=== PATIENT | female | born 1960 | race Caucasian/White ===

== ENCOUNTER 2018-12-27 05:22 | Emergency (ER) | payer SELFPAY ==
[~2018-12-27] VITALS: Ht 154.9 cm; Wt 81.6 kg
[~2018-12-27 05:22] MED LIST: BLACK COHOSH; CYMBALTA; FLAX OIL; HYDR12.570; LISI20TA; LVT.088T
--- OUTSIDE RECORDS SUMMARY | 2018-12-27 05:30 | XMS REPORT ---
Author Author FREDDIE MARTIN Organization [facility] Address [address] [place] [address] Care Team Providers Care Hand Molder Name Role Phone FREDDIE MARTIN Unavailable PROBLEMS Type Condition ICD9-CM Code QHL43-GA Code Onset Dates Condition Status SNOMED Code Problem Anxiety F41.9 Active 07622098 Problem Acquired hypothyroidism E03.9 Active 512069432 Problem Chronic pain syndrome G89.4 Active 036186572 Problem Tobacco use Z72.0 Active 222055745 Problem Essential hypertension I10 Active 05029210 Problem Grief reaction F43.20 Active 744543555 ALLERGIES No Information ENCOUNTERS Encounter Location Date Diagnosis [facility] [address] [address] Jan, [place] [address] [address] October, Anxiety F41.9 and Acute right-sided low back pain without sciatica M54.5 [place] [address] [place] [id number] [place] [address] Sep, [place] [address] [address] Jul, Acute right-sided low back pain without sciatica M54.5 [place] [address] [address] May, Essential hypertension I10 ; Tobacco use Z72.0 ; Acquired hypothyroidism E03.9 ; Chronic pain syndrome G89.4 and Grief reaction F43.20 [place] [address] [place] [id number] [place] [address] Jan, Dermatofibroma D23.9 [place] [address] [place] [address] Jan, Actinic keratosis L57.0 [facility] [address] [place] [id number] [address] Jun, [facility] [address] [address] Sep, [facility] [address] [address] Sep, [facility] [address] [place] [id number] [address] Aug, [facility] [address] [place] [id number] [address] Aug, IMMUNIZATIONS No Known Immunizations SOCIAL HISTORY Never Assessed REASON FOR VISIT Refill Request PLAN OF CARE VITAL SIGNS MEDICATIONS Medication Instructions Dosage Frequency Start Date End Date Duration Status Levothyroxine Sodium 112 MCG Orally Once a day 1 tablet on an empty stomach in the morning 24h Active RESULTS No Results PROCEDURES No Known procedures INSTRUCTIONS MEDICATIONS ADMINISTERED No Known Medications MEDICAL (GENERAL) HISTORY Type Description Date Medical History hypertension Medical History hypothyroidism Medical History anxiety Medical History chronic back, knee, and hip pain Medical History carpal tunnel Surgical History thyroidectomy Surgical History carpal tunnel release aiden Surgical History cervical biopsy x3 Hospitalization History pnuemonia
--- OUTSIDE RECORDS SUMMARY | 2018-12-27 05:30 | XMS REPORT ---
Author Author FREDDIE MARTIN Organization [facility] Address [address] [place] [address] Care Team Providers Care Ticket Sorter Name Role Phone FREDDIE MARTIN Unavailable PROBLEMS Type Condition ICD9-CM Code HQE44-DA Code Onset Dates Condition Status SNOMED Code Problem Anxiety F41.9 Active 44626819 Problem Acquired hypothyroidism E03.9 Active 399352757 Problem Chronic pain syndrome G89.4 Active 057594815 Problem Tobacco use Z72.0 Active 639739673 Problem Essential hypertension I10 Active 42410867 Problem Grief reaction F43.20 Active 802406034 ALLERGIES No Information ENCOUNTERS Encounter Location Date Diagnosis [place] [address] [address] October, Anxiety F41.9 and Acute right-sided low back pain without sciatica M54.5 [place] [address] [address] Sep, [place] [address] [address] Jul, Acute right-sided low back pain without sciatica M54.5 [place] [address] [address] May, Essential hypertension I10 ; Tobacco use Z72.0 ; Acquired hypothyroidism E03.9 ; Chronic pain syndrome G89.4 and Grief reaction F43.20 [place] [address] [address] Jan, Dermatofibroma D23.9 [place] [address] [place] [id number] [place] [address] Jan, Actinic keratosis L57.0 [place] [address] [facility] [id number] [address] Jun, [facility] [address] [facility] [id number] [address] Sep, [facility] [address] [facility] [id number], [place] [address] Sep, [facility] [address] [facility] [id number], [place] [address] Aug, [facility] [address] [facility] [id number], [place] [address] Aug, IMMUNIZATIONS No Known Immunizations SOCIAL HISTORY Never Assessed REASON FOR VISIT Refill request PLAN OF CARE VITAL SIGNS MEDICATIONS Medication [...]
--- OUTSIDE RECORDS SUMMARY | 2018-12-27 05:30 | XMS REPORT ---
Author Author FREDDIE MARTIN Organization [facility] Address [address] [place] [address] Care Team Providers Care Certified Court/Medical Interpreter Name Role Phone FREDDIE MARTIN Unavailable PROBLEMS Type Condition ICD9-CM Code TCD12-YW Code Onset Dates Condition Status SNOMED Code Problem Anxiety F41.9 Active 84924877 Problem Acquired hypothyroidism E03.9 Active 820595541 Problem Chronic pain syndrome G89.4 Active 196450058 Problem Tobacco use Z72.0 Active 494293581 Problem Essential hypertension I10 Active 43650606 Problem Grief reaction F43.20 Active 859075493 ALLERGIES No Information ENCOUNTERS Encounter Location Date Diagnosis [facility] [address] [address] Apr, [facility] [address] [place] [id number] [place] [address] Apr, [facility] [address] [address] Jan, [facility] [address] [place] [id number] [place] [address] October, Anxiety F41.9 and Acute right-sided low back pain without sciatica M54.5 [facility] [address] [place] [id number] [place] [address] Sep, [facility] [address] [address] 08 Jul, 2017 Acute right-sided low back pain without sciatica M54.5 [facility] [address] [address] 13 May, 2017 Essential hypertension I10 ; Tobacco use Z72.0 ; Acquired hypothyroidism E03.9 ; Chronic pain syndrome G89.4 and Grief reaction F43.20 [place] [address], [place] [address] Jan, Dermatofibroma D23.9 [place] [address], [place] [address] Jan, Actinic keratosis L57.0 [place] [address] [place] [id number] [place] [address] Jun, [place] [address] [place] [id number] [place] [address] Sep, [place] [address] [place] [id number] [place], [place] [address] Sep, [place] [address] [place] [id number] [place] [address] Aug, [place] [address] [place] [id number] [place] [address] Aug, IMMUNIZATIONS No Known Immunizations SOCIAL HISTORY Never Assessed REASON FOR VISIT thigh pain bilaterally for the past month. denies any injury. pt doesnt have her copay. chayito, explained to pt we will get her an appt with pcp. pt verbali zed understanding, advised pt to alternate tylenol et motrin as needed for the p ain. may also try heat et / or ice for muscle pain PLAN OF CARE VITAL SIGNS Height 61 in 2018-04-30 Weight 194.0 lbs 2018-04-30 Temperature 98.2 degrees Fahrenheit 2018-04-30 Heart Rate 74 bpm 2018-04-30 Respiratory Rate 20 2018-04-30 BMI 36.65 kg/m2 2018-04-30 Blood pressure systolic 140 mmHg 2018-04-30 Blood pressure diastolic 82 mmHg 2018-04-30 MEDICATIONS Medication Instructions Dosage Frequency Start Date End Date Duration Status Lisinopril 20 MG Orally Once a day 1 tablet 24h Not-Taking Hydrochlorothiazide 12.5 MG Orally Once a day 1 capsule in the morning 24h Not-Taking Aleve Active Levothyroxine Sodium 112 MCG Orally Once a day 1 tablet on an empty stomach in the morning 24h Active Cymbalta 30 MG Orally Once a day x 1 week then 2 tabs daily 1 capsule October, 30 day(s) Not-Taking Valium 2 MG Orally twice a day 1 tablet as needed 12h October, 28 days Not-Taking RESULTS No Results PROCEDURES No Known procedures [...]
--- OUTSIDE RECORDS SUMMARY | 2018-12-27 05:30 | XMS REPORT ---
Author Author FREDDIE MARTIN Organization [facility] Address [address] [place] [address] Care Team Providers Care Pleater Name Role Phone FREDDIE MARTIN Unavailable PROBLEMS Type Condition ICD9-CM Code SJM71-YA Code Onset Dates Condition Status SNOMED Code Problem Anxiety F41.9 Active 72327457 Problem Acquired hypothyroidism E03.9 Active 116903449 Problem Chronic pain syndrome G89.4 Active 663405434 Problem Tobacco use Z72.0 Active 318219433 Problem Essential hypertension I10 Active 37371029 Problem Grief reaction F43.20 Active 419596241 ALLERGIES Substance Reaction Event Type Date Status Statins Depletion Unknown Drug Allergy Jul, Active Penicillin V Potassium Unknown Drug Allergy Jul, Active Bactrim DS Unknown Drug Allergy Jul, Active ENCOUNTERS Encounter Location Date Diagnosis [place] [address] [place] [id number] [place] [address] Jan, [place] [address] [place] [id number] [place] [address] October, Anxiety F41.9 and Acute right-sided low back pain without sciatica M54.5 [place] [address] [place] [id number] [place] [address] Sep, [facility] [address] [place] [id number] [place] [address] Jul, Acute right-sided low back pain without sciatica M54.5 [place] [address] [place] [id number] [place] [address] May, Essential hypertension I10 ; Tobacco use Z72.0 ; Acquired hypothyroidism E03.9 ; Chronic pain syndrome G89.4 and Grief reaction F43.20 [place] [address] [place], [place] [address] Jan, Dermatofibroma D23.9 [facility] [address], [place] [address] Jan, Actinic keratosis L57.0 [facility] [address], [place] [address] Jun, [facility] [address], [place] [address] Sep, [facility] [address], [place] [address] Sep, [facility] [address], [place] [address] Aug, [facility] [address], [place] [address] Aug, IMMUNIZATIONS Vaccine Route Administration Date Status DEPO MEDROL 40 MG/ML IM Intramuscular Aug 06, 2017 Administered SOCIAL HISTORY Never Assessed REASON FOR VISIT Pain (acute) / middle back pain x few days -- mendel ibrahim PLAN OF CARE Activity Details Follow Up 3 Months with Jessica crowder back pain Reason: VITAL SIGNS Height 61 in 2017-08-06 Weight 174.0 lbs 2017-08-06 Temperature 97.8 degrees Fahrenheit 2017-08-06 BMI 32.87 kg/m2 2017-08-06 Blood pressure systolic 138 mmHg 2017-08-06 Blood pressure diastolic 86 mmHg 2017-08-06 MEDICATIONS Medication Instructions Dosage Frequency Start Date End Date Duration Status Hydrocodone-Acetaminophen 10-325 MG Orally every 6 hrs 1 tablet as needed 6h Jul, Jul, 10 days Active Aleve Active BusPIRone HCl 10 mg Orally Twice a day 1 tablet 12h May, Not-Taking Lisinopril 20 MG Orally Once a day 1 tablet 24h Not-Taking Hydrochlorothiazide 12.5 MG Orally Once a day 1 capsule in the morning 24h Not-Taking Levothyroxine Sodium 112 MCG Orally Once a day 1 tablet on an empty stomach in the morning 24h Active RESULTS No Results PROCEDURES Procedure Date Ordered Result Body Site DEPO MEDROL 40 MG/ML Aug 06, 2017 THER/PROPH/DIAG INJ, SC/IM Aug 06, 2017 INSTRUCTIONS MEDICATIONS ADMINISTERED No Known Medications MEDICAL (GENERAL) HISTORY Type Description Date Medical History hypertension Medical History hypothyroidism Medical History anxiety Medical History chronic back, knee, and hip pain Medical History carpal tunnel Surgical History thyroidectomy Surgical History carpal tunnel release aiden Surgical History cervical biopsy x3 Hospitalization History pnuemonia
--- OUTSIDE RECORDS SUMMARY | 2018-12-27 05:30 | XMS REPORT ---
Author Author FREDDIE MARTIN Organization [facility] Address [address] [place] [address] Care Team Providers Care Mattress Renovator Name Role Phone FREDDIE MARTIN Unavailable PROBLEMS Type Condition ICD9-CM Code NPD45-MS Code Onset Dates Condition Status SNOMED Code Problem Anxiety F41.9 Active 29769153 Problem Acquired hypothyroidism E03.9 Active 894932751 Problem Chronic pain syndrome G89.4 Active 042528594 Problem Tobacco use Z72.0 Active 152903249 Problem Essential hypertension I10 Active 18542908 Problem Grief reaction F43.20 Active 038407461 ALLERGIES Substance Reaction Event Type Date Status Statins Depletion Unknown Drug Allergy May, Active Penicillin V Potassium Unknown Drug Allergy May, Active Bactrim DS Unknown Drug Allergy May, Active ENCOUNTERS Encounter Location Date Diagnosis [place] [address] [place] [id number] [place] [address] October, Anxiety F41.9 and Acute right-sided low back pain without sciatica M54.5 [place] [address] [place] [address] Sep, [place] [address] [place] [id number] [place] [address] Jul, Acute right-sided low back pain without sciatica M54.5 [place] [address] [place] [id number] [place] [address] May, Essential hypertension I10 ; Tobacco use Z72.0 ; Acquired hypothyroidism E03.9 ; Chronic pain syndrome G89.4 and Grief reaction F43.20 [place] [address] [place] [id number] [place] [address] Jan, Dermatofibroma D23.9 [place] [address] [place] [id number], [place] [address] Jan, Actinic keratosis L57.0 [facility] [address] [place] [id number], [place] [address] Jun, [facility] [address] [facility] [id number] [address] Sep, [place] [address], [place] [address] Sep, [facility] [address] [facility] [id number] [address] Aug, [place] [address], [place] [address] Aug, IMMUNIZATIONS No Known Immunizations SOCIAL HISTORY Never Assessed REASON FOR VISIT Establish Care Bruno KIRKA , pt would like to discuss refills for Valium and h ydrcodone PLAN OF CARE Activity Details Follow Up 3 Months with Jessica crowder HTN/chronic pain medications Reason: VITAL SIGNS Height 61 in 2017-06-10 Weight 168.9 lbs 2017-06-10 Temperature 98.1 degrees Fahrenheit 2017-06-10 Heart Rate 96 bpm 2017-06-10 Respiratory Rate 18 2017-06-10 BMI 31.91 kg/m2 2017-06-10 Blood pressure systolic 168 mmHg 2017-06-10 Blood pressure diastolic 90 mmHg 2017-06-10 MEDICATIONS Medication Instructions Dosage Frequency Start Date End Date Duration Status Hydrocodone-Acetaminophen 10-325 MG Orally every 6 hrs 1 tablet as needed 6h May, Active Hydrochlorothiazide 12.5 MG Orally Once a day 1 capsule in the morning 24h Not-Taking Aleve Active Lisinopril 20 MG Orally Once a day 1 tablet 24h Not-Taking BusPIRone HCl 10 mg Orally Twice a day 1 tablet 12h May, Active Levothyroxine Sodium 112 MCG Orally Once [...]
--- OUTSIDE RECORDS SUMMARY | 2018-12-27 05:30 | XMS REPORT ---
Author Author FREDDIE MARTIN Organization [facility] Address [address] [place] [address] Care Team Providers Care Apple Checker Name Role Phone FREDDIE MARTIN Unavailable PROBLEMS Type Condition ICD9-CM Code IHR75-PX Code Onset Dates Condition Status SNOMED Code Problem Anxiety F41.9 Active 45106414 Problem Acquired hypothyroidism E03.9 Active 259552306 Problem Chronic pain syndrome G89.4 Active 528054652 Problem Tobacco use Z72.0 Active 345398219 Problem Essential hypertension I10 Active 67789929 Problem Grief reaction F43.20 Active 088749421 ALLERGIES Substance Reaction Event Type Date Status Statins Depletion Unknown Drug Allergy October, Active Penicillin V Potassium Unknown Drug Allergy October, Active Bactrim DS Unknown Drug Allergy October, Active ENCOUNTERS Encounter Location Date Diagnosis [place] [address] [place] [id number] [place] [address] Jan, [place] [address] [place] [id number] [place] [address] October, Anxiety F41.9 and Acute right-sided low back pain without sciatica M54.5 [place] [address] [place] [id number] [place] [address] Sep, [facility] [address] [place] [id number] [place] [address] Jul, Acute right-sided low back pain without sciatica M54.5 [facility] [address] [place] [id number] [place] [address] May, Essential hypertension I10 ; Tobacco use Z72.0 ; Acquired hypothyroidism E03.9 ; Chronic pain syndrome G89.4 and Grief reaction F43.20 [facility] [address] [place] [address] Jan, Dermatofibroma D23.9 [facility] [address] [place] [address] Jan, Actinic keratosis L57.0 [facility] [address], [place] [address] Jun, [facility] [address] [place] [id number] [place] [address] Sep, [facility] [address] [place] [id number] [place] [address] Sep, [place] [address] [place] [id number] [place] [address] Aug, [facility] [address] [place] [id number] [place] [address] Aug, IMMUNIZATIONS No Known Immunizations SOCIAL HISTORY Never Assessed REASON FOR VISIT Pain (acute), pulled something in lower back yesterday-Kristy, States her a nxiety has been very high, recently quit smoking PLAN OF CARE Activity Details Follow Up 2 Months with Jessica crowder anxiety and backpain Reason: VITAL SIGNS Height 61 in 2017-10-29 Weight 194.0 lbs 2017-10-29 Temperature 99.2 degrees Fahrenheit 2017-10-29 Heart Rate 64 bpm 2017-10-29 Respiratory Rate 20 2017-10-29 BMI 36.65 kg/m2 2017-10-29 Blood pressure systolic 136 mmHg 2017-10-29 Blood pressure diastolic 88 mmHg 2017-10-29 MEDICATIONS Medication Instructions Dosage Frequency Start Date End Date Duration Status Lisinopril 20 MG Orally Once a day 1 tablet 24h Not-Taking Cymbalta 30 MG Orally Once a day x 1 week then 2 tabs daily 1 capsule October, 30 day(s) Active Hydrochlorothiazide 12.5 MG Orally Once a day 1 capsule in the morning 24h Not-Taking Levothyroxine Sodium 112 MCG Orally Once a day 1 tablet on an empty stomach in the morning 24h Active Valium 2 MG Orally twice a day 1 tablet as needed 12h October, 28 days Active Aleve Active RESULTS No Results PROCEDURES No Known [...]
--- OUTSIDE RECORDS SUMMARY | 2018-12-27 05:30 | XMS REPORT ---
Author Author PRASANTH SALAZAR Organization [facility] Address [address] [place] [address] Care Team Providers Care Bow Repairer Custom Name Role Phone PRASANTH SALAZAR Unavailable PROBLEMS Type Condition ICD9-CM Code LTI70-PN Code Onset Dates Condition Status SNOMED Code Problem Tobacco use Z72.0 Active 811819725 Problem Meralgia paresthetica of both lower extremities G57.13 Active 34700582540456691 Problem Anxiety F41.9 Active 49743459 Problem Grief reaction F43.20 Active 921151023 Problem Chronic pain syndrome G89.4 Active 515392790 Problem Acquired hypothyroidism E03.9 Active 103951274 Problem Essential hypertension I10 Active 86501723 ALLERGIES Substance Reaction Event Type Date Status Statins Depletion Unknown Drug Allergy Apr, Active Penicillin V Potassium Unknown Drug Allergy Apr, Active Bactrim DS Unknown Drug Allergy Apr, Active ENCOUNTERS Encounter Location Date Diagnosis [facility] [address] [address] Apr, Chronic pain syndrome G89.4 and Meralgia paresthetica of both lower extremities G57.13 [facility] [address] [place] [address] Apr, [facility] [address] [place] [id number] [place] [address] Jan, [facility] [address] [address] October, Anxiety F41.9 and Acute right-sided low back pain without sciatica M54.5 [facility] [address] [place] [id number] [place] [address] Sep, [facility] [address] [address] 08 Jul, 2017 Acute right-sided low back pain without sciatica M54.5 [place] [address] [place] [id number] [place] [address] May, Essential hypertension I10 ; Tobacco use Z72.0 ; Acquired hypothyroidism E03.9 ; Chronic pain syndrome G89.4 and Grief reaction F43.20 [place] [address] [address] Jan, Dermatofibroma D23.9 [place] [address] [place] [id number] [place] [address] Jan, Actinic keratosis L57.0 [place] [address] [address] Jun, [place] [address] [address] Sep, [place] [address] [address] Sep, [place] [address] [address] Aug, [place] [address] [place] [id number] [place] [address] Aug, IMMUNIZATIONS No Known Immunizations SOCIAL HISTORY Never Assessed REASON FOR VISIT leg pain,bilateral leg pain in thigh down to knees, tingling, numbness, and barbi p pains off and on. Hard to walk and drive. pt states has had this for a month o r more. pt states has been taking OTC's but not helping. Nathalia PLASCENCIA, pt would like to try Xanax again. PLAN OF CARE Activity Details Follow Up prn Reason: VITAL SIGNS Height 61 in 2018-05-05 Weight 195.4 lbs 2018-05-05 Temperature 98.4 degrees Fahrenheit 2018-05-05 Heart Rate 68 bpm 2018-05-05 Respiratory Rate 17 2018-05-05 BMI 36.92 kg/m2 2018-05-05 Blood pressure systolic 138 mmHg 2018-05-05 Blood pressure diastolic 80 mmHg 2018-05-05 MEDICATIONS Medication Instructions Dosage Frequency Start Date End Date Duration Status Levothyroxine Sodium 112 MCG Orally Once a day 1 tablet on an empty stomach in the morning 24h Active Cyclobenzaprine HCl 10 mg Orally twice daily, prn muscle spasm 1 tablet as needed Apr, Apr, 14 days Active Gabapentin 100 mg Orally Three times a day 1 capsule 8h Apr, 30 day(s) Active Aleve Active RESULTS No Results PROCEDURES [...]
--- OUTSIDE RECORDS SUMMARY | 2018-12-27 05:30 | XMS REPORT ---
Author Author Migration, Doctor Organization [facility] Address Unknown Phone Unavailable Care Team Providers Care Process Operator Name Role Phone Migration, Doctor Unavailable Unavailable PROBLEMS Type Condition ICD9-CM Code [id number] Code Onset Dates Condition Status SNOMED Code Problem Tobacco use Z72.0 Active 807793897 Problem Anxiety F41.9 Active 23282048 Problem Meralgia paresthetica of both lower extremities G57.13 Active 21541236067475541 Problem Chronic pain syndrome G89.4 Active 543773468 Problem Grief reaction F43.20 Active 202203983 Problem Essential hypertension I10 Active 60695128 Problem Acquired hypothyroidism E03.9 Active 477623961 ALLERGIES No Information ENCOUNTERS Encounter Location Date Diagnosis [facility] [id number] [place] [phone] Aug, [facility] [id number] [place] [phone] May, [facility] [address] [phone] Apr, Chronic pain syndrome G89.4 and Meralgia paresthetica of both lower extremities G57.13 [facility] [id number] [place] [phone] Apr, [facility] [id number] [place] [phone] Jan, [facility] [address] [address] October, Anxiety F41.9 and Acute right-sided low back pain without sciatica M54.5 [facility] [id number] [place] [phone] Sep, [facility] [id number] [place] [phone] Jul, Acute right-sided low back pain without sciatica M54.5 [facility] [id number] [place] [phone] May, Essential hypertension I10 ; Tobacco use Z72.0 ; Acquired hypothyroidism E03.9 ; Chronic pain syndrome G89.4 and Grief reaction F43.20 [place] [id number] [place] [phone] Jan, Dermatofibroma D23.9 [place] [id number] [place] [phone] Jan, Actinic keratosis L57.0 [place] [id number] [place] [phone] Jun, [place] [id number] [place] [phone] Sep, [facility] [id number] [place] [phone] Sep, [place] [id number] [place] [phone] Aug, [facility] [id number] [place] [phone] Aug, IMMUNIZATIONS No Known Immunizations SOCIAL HISTORY Never Assessed REASON FOR VISIT [facility] PLAN OF CARE VITAL SIGNS MEDICATIONS Unknown Medications RESULTS No Results PROCEDURES No Known procedures [...]
--- OUTSIDE RECORDS SUMMARY | 2018-12-27 05:30 | XMS REPORT ---
Author Author JEREMIAS COY Organization [facility] Address [address] [place] [address] Care Team Providers Care Edging Machine Catcher Name Role Phone JEREMIAS COY Unavailable PROBLEMS Type Condition ICD9-CM Code [id number] Code Onset Dates Condition Status SNOMED Code Problem Chronic pain syndrome G89.4 Active 987245027 Problem Tobacco use Z72.0 Active 363852086 Problem Grief reaction F43.20 Active 903590378 Problem Acquired hypothyroidism E03.9 Active 915152506 Problem Essential hypertension I10 Active 64931148 ALLERGIES Substance Reaction Event Type Date Status Statins Depletion Unknown Drug Allergy Jan, Active Penicillin V Potassium Unknown Drug Allergy Jan, Active Bactrim DS Unknown Drug Allergy Jan, Active ENCOUNTERS Encounter Location Date Diagnosis [place] [address] [place] [phone] Sep, [id number] [place] [phone] Jul, Acute right-sided low back pain without sciatica M54.5 [place] [address] [place] [phone] May, Essential hypertension I10 ; Tobacco use Z72.0 ; Acquired hypothyroidism E03.9 ; Chronic pain syndrome G89.4 and Grief reaction F43.20 [facility] [address] [address] Jan, Dermatofibroma D23.9 [place] [address] [place] [phone] Jan, Actinic keratosis L57.0 [place] [address] [place] [phone] Jun, [place] [id number] [facility] [id number] [address] Sep, [facility] [address] [facility] [id number] [address] Sep, [facility] [address] [facility] [id number] [address] Aug, [facility] [address] [facility] [id number] [address] Aug, IMMUNIZATIONS No Known Immunizations SOCIAL HISTORY Never Assessed REASON FOR VISIT CRYO on left upper arm 2 spots. Has spot on right forearm. CbrumbackRN PLAN OF CARE VITAL SIGNS Height 61 in 2017-02-24 Weight 179.0 lbs 2017-02-24 Temperature 99.4 degrees Fahrenheit 2017-02-24 Heart Rate 88 bpm 2017-02-24 Respiratory Rate 18 2017-02-24 BMI 33.82 kg/m2 2017-02-24 Blood pressure systolic 136 mmHg 2017-02-24 Blood pressure diastolic 78 mmHg 2017-02-24 MEDICATIONS Medication Instructions Dosage Frequency Start Date End Date Duration Status Lisinopril 20 MG Orally Once a day 1 tablet 24h Active Hydrocodone-Acetaminophen 10-325 MG Orally every 6 hrs 1 tablet as needed 6h Active Levothyroxine Sodium 112 MCG Orally Once a day 1 tablet on an empty stomach in the morning 24h Active Hydrochlorothiazide 12.5 MG Orally Once a day 1 capsule in the morning 24h Active Valium 10 MG Orally Twice a day 1 tablet as needed 12h Active RESULTS No Results PROCEDURES Procedure Date Ordered Result Body Site CRYOTHERAPY OF SKIN 2017-02-24 N/A CRYOTHERAPY OF SKIN Feb 24, 2017 INSTRUCTIONS MEDICATIONS ADMINISTERED No Known Medications MEDICAL (GENERAL) HISTORY Type Description Date Medical History hypertension Medical History hypothyroidism Medical History anxiety Medical History chronic back, knee, and hip pain Medical History carpal tunnel Surgical History thyroidectomy Surgical History carpal tunnel release aiden Surgical History cervical biopsy x3 Hospitalization History pnuemonia
--- OUTSIDE RECORDS SUMMARY | 2018-12-27 05:30 | XMS REPORT ---
Author Author FAITH YOUNG Organization [facility] Address [address] [place] [address] Care Team Providers Care Cue Selector Name Role Phone FAITH YOUNG Unavailable PROBLEMS Type Condition ICD9-CM Code [id number] Code Onset Dates Condition Status SNOMED Code Problem Chronic pain syndrome G89.4 Active 486423666 Problem Tobacco use Z72.0 Active 045091358 Problem Grief reaction F43.20 Active 191897364 Problem Acquired hypothyroidism E03.9 Active 449148906 Problem Essential hypertension I10 Active 41076846 ALLERGIES Substance Reaction Event Type Date Status Statins Depletion Unknown Drug Allergy Jan, Active Penicillin V Potassium Unknown Drug Allergy Jan, Active Bactrim DS Unknown Drug Allergy Jan, Active ENCOUNTERS Encounter Location Date Diagnosis [place] [id number] [place] [phone] Sep, [place] [id number] [place] [phone] Jul, Acute right-sided low back pain without sciatica M54.5 [place] [id number] [place] [phone] May, Essential hypertension I10 ; Tobacco use Z72.0 ; Acquired hypothyroidism E03.9 ; Chronic pain syndrome G89.4 and Grief reaction F43.20 [place] [address] [place] [phone] Jan, Dermatofibroma D23.9 [place] [id number] [place] [phone] Jan, Actinic keratosis L57.0 [place] [id number] [place] [phone] Jun, [facility] [address] [facility] [id number] [address] Sep, [facility] [address] [facility] [id number] [address] Sep, [facility] [address] [facility] [id number] [address] Aug, [facility] [address] [facility] [id number] [address] Aug, IMMUNIZATIONS No Known Immunizations SOCIAL HISTORY Never Assessed REASON FOR VISIT Skin lesions x2 on left upper arm. changing shapes, itching, and bleeding and so metimes just hurts. CBrumbackRN PLAN OF CARE Activity Details Follow Up prn Reason: VITAL SIGNS Height 61 in 2017-02-19 Weight 183.9 lbs 2017-02-19 Temperature 98.2 degrees Fahrenheit 2017-02-19 Heart Rate 80 bpm 2017-02-19 Respiratory Rate 16 2017-02-19 BMI 34.74 kg/m2 2017-02-19 Blood pressure systolic 148 mmHg 2017-02-19 Blood pressure diastolic 74 mmHg 2017-02-19 MEDICATIONS Medication Instructions Dosage Frequency Start Date End Date Duration Status Hydrocodone-Acetaminophen 10-325 MG Orally every 6 hrs 1 tablet as needed 6h Active Levothyroxine Sodium 112 MCG Orally Once a day 1 tablet on an empty stomach in the morning 24h Active Lisinopril 20 MG Orally Once a day 1 tablet 24h Active Valium 10 MG Orally Twice a day 1 tablet as needed 12h Active RESULTS No Results PROCEDURES No Known [...]
--- OUTSIDE RECORDS SUMMARY | 2018-12-27 05:31 | XMS REPORT | Continuity of Care Document ---
Demographics Preferred Language Unknown Marital Status Unknown Gnosticism Affiliation Unknown Race Unknown Ethnic Group Unknown Author Organization Unknown Address Unknown Allergies Active Description Code Type Severity Reaction Onset Reported/Identified Relationship to Patient Clinical Status Yes erythromycin base [id number] Drug Allergy Mild NAUSEA 03/19/2009 Yes Penicillins [id number] Drug Allergy Mild N/A 03/19/2009 Yes Sulfa (Sulfonamide Antibiotics) [id number] Drug Allergy Mild N/A 03/19/2009 Yes Penicillins Drug Allergy 02/25/2011 Yes sulfa drug Drug Allergy 02/25/2011 Medications There is no data. Problems Date Dx Coded Attending Type Code Diagnosis Diagnosed By 02/25/2011 300.00 ANXIETY UNSPEC 02/25/2011 780.50 SLEEP DISTURBANCE, UNSPECIFIED 02/25/2011 780.79 MALAISE AND FATIGUE 02/25/2011 919.6 SUPERFICIAL FOREIGN BODY (SPLINTER) OF OTHER MULTIPLE AND UNSPECIFIED SITES WITHOUT MAJOR OPEN WOUND AND WITHOUT INFECTION Procedures There is no data. Results There is no data. Encounters ACCT No. Visit Date/Time Discharge Status Pt. Type Provider Facility Loc./Unit Complaint [id number] 02/25/2011 18:08:00 02/25/2011 23:59:59 [facility] Outpatient [id number] 10/29/2017 14:40:00 10/29/2017 23:59:59 [facility] Outpatient FREDDIE MARTIN [facility] [id number] 05/30/2015 11:56:00 05/30/2015 23:59:59 [facility] Outpatient GABBY DIANA [facility] OCC
[2018-12-27] MEDS ORDERED: KETOROLAC 60 MG/2 ML VIAL IM ONE (06:00)
[2018-12-27 06:03] LABS: CLARITY,URINE CLEAR; COLOR,URINE YELLOW; GLUCOSE, URINE (UA) NEGATIVE (NEGATIVE); KETONES,URINE NEGATIVE (NEGATIVE); LEUKOCYTE ESTERASE ,URINE 2+ (NEGATIVE); NITRITE,URINE NEGATIVE (NEGATIVE); PH,URINE 7 (5-9); PROTEIN,URINE 2+ (NEGATIVE); UROBILINOGEN,URINE NORMAL (NORMAL)
[2018-12-27 06:04] LABS: BACTERIA,URINE FEW /HPF; BILIRUBIN,URINE 1+ (NEGATIVE); SQUAMOUS EPITHELIAL CELL,UR 0-2 /HPF; WBC,URINE RARE /HPF
--- NOTE | 2018-12-27 06:04 | ED Back Pain ---
General Chief Complaint: Back Problems Stated Complaint: SEVERE PAIN IN LOWER BACK Nursing Triage Note: Pt amb to room #5 w/o difficulty. a&ox4. c/o lower rt sided back pain that began on 12/24/18. Pt states, "I pulled my back @ work on thursday." Reports increase in severity since injury. Denies numbness or tingling to extremities. Denies loss of bowel or bladder control. 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 AND BENT OVER TO PULL UP PT'S PANTS AND WAS LIFTING ON PT WHEN BACK BEGAN TO HURT STATES PAIN "WASN'T TOO BAD" UNTIL LAST NIGHT PAIN IS ON RIGHT LOWER BACK AND NOW IS RADIATING DOWN POSTERIOR ASPECT OF RIGHT LEG NO PARESTHESIAS OR MOTOR DEFICITS NO PROBLEMS WITH BOWEL OR BLADDER CONTROL HAS HAD OCCASIONAL PROBLEMS SIMILAR TO THIS BUT NOT THIS BAD STATES SHE HAS CONTINUED TO WORK OVER THE WEEKEND, AND 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 PT IS SUPPOSED TO WORK TONIGHT AT 1700 Other Comments PCP: MARI Allergies and Home Medications Allergies Coded Allergies: Penicillins (Unverified Allergy, Mild, 03/19/09) Sulfa (Sulfonamide Antibiotics) (Unverified Allergy, Mild, 03/19/09) Erythromycin Base (Unverified Adverse Reaction, Mild, NAUSEA, 03/19/09) Patient Home Medication List Home Medication List Reviewed: Yes Review of Systems Constitutional: no symptoms reported Respiratory: no symptoms reported Cardiovascular: no symptoms reported Gastrointestinal: no symptoms reported Genitourinary: no symptoms reported Musculoskeletal: see HPI, back pain Skin: no symptoms reported Psychiatric/Neurological: No Symptoms Reported Past Wizeprs-Tlcsjf-Pjepdh Hx Patient Social History Alcohol Use: Denies Use Recreational Drug Use: No Smoking Status: Current Everyday Smoker Type Used: Cigarettes 2nd Hand Smoke Exposure: Yes Recent Foreign Travel: No Contact w/Someone Who Travel: No Recent Infectious Disease Expo: No Recent Hopitalizations: Yes (CHILDBIRTH/PNEUMONIA 17 YRS AGO) Past Medical History Surgeries: No Respiratory: No Cardiac: Yes (HTN--ON MEDICATIONS IN THE PAST, BUT NOT FOR A LONG TIME) Hypertension Neurological: No Reproductive Disorders: No Sexually Transmitted Disease: No Genitourinary: No Gastrointestinal: No Musculoskeletal: No Endocrine: Yes Hypothyroidsim HEENT: No Cancer: No Psychosocial: Yes Anxiety, Depression Integumentary: No Blood Disorders: No Physical Exam Vital Signs Vital Signs - First Documented 12/27/18 05:29 Temp 98.2 Pulse 81 Resp 18 B/P (MAP) 197/96 (129) Pulse Ox 96 O2 Delivery Room Air Capillary Refill : Less Than 3 Seconds Height, Weight, BMI Height: 5'1.00" Weight: 180lbs. oz. 81.650413zo; BMI Method:Stated General Appearance: No Apparent Distress, Obese, Other (WALKS AND MOVES SOMEWHAT SLOWLY) Neck: Normal Inspection Cardiovascular: Regular Rate, Rhythm, No Edema, No JVD, No Murmur, Normal Peripheral Pulses Respiratory: Normal Breath Sounds, No Accessory Muscle Use, No Respiratory Distress Gastrointestinal: Non Tender, Soft Back: Normal Inspection, No CVA Tenderness, No Vertebral Tenderness, Other (POINTS TO RIGHT LOWER LUMBAR AREA, RIGHT SI AREA, RIGHT BUTTOCK AND RIGHT POSTERIOR THIGH AREA OF PAIN, BUT IS NON-TENDER. NO RASH. 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 Norm as Tested Skin: Normal Color, Warm/Dry; No Rash Progress/Results/Core Measures Results/Orders Lab Results Laboratory Tests Test 12/27/18 05:48 Range/Units Urine Color YELLOW Urine Clarity CLEAR Urine pH 7 5-9 Urine Specific [place] 1.015 L 1.016-1.022 Urine Protein 2+ H NEGATIVE Urine Glucose (UA) NEGATIVE NEGATIVE Urine Ketones NEGATIVE NEGATIVE Urine Nitrite NEGATIVE NEGATIVE Urine Bilirubin 1+ H NEGATIVE Urine Urobilinogen NORMAL NORMAL MG/DL Urine Leukocyte Esterase 2+ H NEGATIVE Urine RBC (Auto) 4+ H NEGATIVE Urine RBC NONE /HPF Urine WBC RARE /HPF Urine Squamous Epithelial Cells 0-2 /HPF Urine Crystals NONE /LPF Urine Bacteria FEW H /HPF Urine Casts NONE /LPF Urine Mucus NEGATIVE /LPF Urine Culture Indicated YES My Orders Orders - MARYURI MCELROY DO Ua Culture If Indicated (12/27/18 05:40) Ketorolac Injection (Toradol Injection) (12/27/18 06:00) Urine Culture (12/27/18 05:48) Medications Given in ED Current Medications Medications Dose Ordered Sig/Francisco Route Start Time Stop Time Status Last Admin Dose Admin Ketorolac Tromethamine 60 mg ONCE ONCE IM 12/27/18 06:00 12/27/18 06:01 DC 12/27/18 06:07 60 MG Vital Signs/I&O 12/27/18 05:29 Temp 98.2 Pulse 81 Resp 18 B/P (MAP) 197/96 (129) Pulse Ox 96 O2 Delivery Room Air Blood Pressure Mean: 129 Progress Progress Note : Progress Note BP DOWN WITHOUT TREATMENT PAIN BEGINNING TO EASE AT DISMISSAL Departure Impression Primary Impression: Low back pain radiating to right leg Additional Impressions: UTI (urinary tract infection) HTN (hypertension) Disposition: HOME, SELF-CARE Condition: Stable Departure-Patient Inst. Referrals: [facility] (PCP) Primary Care Physician Patient Instructions: DASH Diet, High Blood Pressure (DC), Low Back Pain (DC), Lumbar Muscle Strain (DC), Sciatica (DC), Sciatica Exercises, Urinary Tract Infection, Adult (DC) Add. Discharge Instructions: ALTERNATE ICE AND HEAT TO SORE AREA AT 20 MINUTE INTERVALS NO LIFTING OVER 5 LBS, NO TWISTING OR BENDING AT WAIST FOLLOW UP WITH YOUR EMPLOYER'S WORK COMP PROVIDER OR [facility] TODAY FOR FURTHER CARE AND FOR RELEASE TO RETURN TO WORK All discharge instructions reviewed with patient and/or family. Voiced understanding. Scripts Cyclobenzaprine HCl (Cyclobenzaprine HCl) 10 Mg Tablet 10 MG PO Q8H, #15 TAB Prov: MARYURI MCELROY DO 12/27/18 Nitrofurantoin Monohyd/M-Cryst (Macrobid 100 mg Capsule) 100 Mg Capsule 100 MG PO BID, #20 CAP Prov: MARYURI MCELROY DO 12/27/18 Methylprednisolone (Medrol) 4 Mg Tab.ds.pk 4 MG PO UD, #1 PKG Prov: MARYURI MCELROY DO 12/27/18 Work/School Note: Work Release Form Date Seen in the Emergency Department: Dec 27, 2018 Restrictions: Need Release from Doctor MARYURI MCELROY DO Dec 27, 2018 06:04
[2018-12-27] MEDS ORDERED: NITR-65 PO (06:23)
[2018-12-27] MEDS ORDERED: CYCL10TA9 PO (06:23)
[2018-12-27] MEDS ORDERED: METH4TAB PO (06:23)
[2018-12-27 06:30] VITALS: BP 143/71
== END 2018-12-27 06:30 | disposition home or self-care (01) ==
LOC: EDUNIT# 05:22 → ER 05:25
DX: N39.0 Urinary tract infection, site not specified (principal); I10 Essential (primary) hypertension; M54.5 Low back pain; E03.9 Hypothyroidism, unspecified; F41.9 Anxiety disorder, unspecified; F32.9 Major depressive disorder, single episode, unspecified; F17.210 Nicotine dependence, cigarettes, uncomplicated; Z88.0 Allergy status to penicillin; Z88.2 Allergy status to sulfonamides; Z88.1 Allergy status to other antibiotic agents; Z91.14 Patient's other noncompliance with medication regimen
CPT/HCPCS: 81000; 87088; 99284

== ENCOUNTER 2019-04-27 19:10 | Emergency (ER) | payer SELFPAY ==
[~2019-04-27] VITALS: Ht 154 cm; Wt 93.0 kg
[~2019-04-27 19:10] MED LIST changes: +CYCL10TA9 PO; +METH4TAB PO; +NITR-65 PO
[2019-04-27] MEDS ORDERED: ONDANSETRON 4 MG (ZOFRAN) ORAL DISSOLVE TAB PO ONE (19:45)
--- NOTE | 2019-04-27 19:49 | ED GU-Female ---
General Chief Complaint: - Urinary Stated Complaint: PAINFUL WHEN URINATION Nursing Triage Note: Pt ambulates to RM 6 with c/o burning urination x 3 days, lower back pain and overall weakness. Nursing Sepsis Screen: No Definite Risk Source: patient Exam Limitations: no limitations History of Present Illness Date Seen by Provider: Apr 27, 2019 Time Seen by Provider: 19:30 Initial Comments Patient present to ER with chief complaint of to 3 days of dysuria urgency and symptoms of a bladder infection. She has also had some clear rhinorrhea cough with whitish frothy sputum. No shortness of breath wheezing history of COPD asthma. No fevers or chills. No abdominal pain diarrhea or constipation. She denies history flank pain or kidney stone. Allergies and Home Medications Allergies Coded Allergies: Penicillins (Verified Allergy, Mild, 04/27/19) Sulfa (Sulfonamide Antibiotics) (Verified Allergy, Mild, 04/27/19) erythromycin base (Verified Adverse Reaction, Mild, NAUSEA, 04/27/19) Home Medications Cyclobenzaprine HCl 10 Mg Tablet, 10 MG PO Q8H Prescribed by: MARYURI MCELROY on 12/27/18622 Methylprednisolone 4 Mg Tab.ds.pk, 4 MG PO UD Prescribed by: MARYURI MCELROY on 12/27/18622 Nitrofurantoin Monohyd/M-Cryst 100 Mg Capsule, 100 MG PO BID Prescribed by: MARYURI MCELROY on 12/27/18622 Patient Home Medication List Home Medication List Reviewed: Yes Review of Systems Review of Systems Constitutional: No chills, No diaphoresis, No fever; malaise EENTM: No ear discharge, No ear pain Respiratory: see HPI, cough; No phlegm; short of breath Cardiovascular: No chest pain, No edema Gastrointestinal: No abdominal pain, No constipation, No nausea, No vomiting Genitourinary: denies discharge, denies dysuria Musculoskeletal: No back pain, No joint pain Past Hztqrhb-Htlgjw-Txvqtn Hx Patient Social History Alcohol Use: Denies Use Recreational Drug Use: No Smoking Status: Current Everyday Smoker Type Used: Cigarettes 2nd Hand Smoke Exposure: Yes Recent Foreign Travel: No Contact w/Someone Who Travel: No Recent Infectious Disease Expo: No Recent Hopitalizations: No Physical Abuse: No Sexual Abuse: No Mistreated: No Fear: No Seasonal Allergies Seasonal Allergies: No Past Medical History Surgeries: No Ear Surgery Respiratory: No Cardiac: Yes Hypertension Neurological: No Reproductive Disorders: No Sexually Transmitted Disease: No Genitourinary: No Gastrointestinal: No Musculoskeletal: No Endocrine: Yes Hypothyroidsim HEENT: No Cancer: No Psychosocial: Yes Anxiety, Depression Integumentary: No Blood Disorders: No Physical Exam Vital Signs Vital Signs - First Documented 04/27/19 19:20 Temp 36.4 Pulse 82 Resp 19 B/P (MAP) 177/105 (129) Pulse Ox 96 O2 Delivery Room Air Capillary Refill : Less Than 3 Seconds Height, Weight, BMI Height: 5'1.00" Weight: 180lbs. oz. 81.895412ks; 39.00 BMI Method:Stated General Appearance: WD/WN, no apparent distress HEENT: PERRL/EOMI, pharynx normal Neck: full range of motion, normal inspection Cardiovascular: normal peripheral pulses, regular rate, rhythm Respiratory: chest non-tender, lungs clear, normal breath sounds, no respiratory distress, no accessory muscle use Gastrointestinal: normal bowel sounds, non tender, soft Extremities: normal range of motion, normal inspection, normal capillary refill Neurologic/Psychiatric: alert, normal mood/affect, oriented x 3 Progress/Results/Core Measures Suspected Sepsis Recent Fever Within 48 Hours: No Infection Criteria Present: None New/Unexplained Altered Menta: No Sepsis Screen: No Definite Risk SIRS Temperature: Pulse: 82 Respiratory Rate: 19 Blood Pressure 177 /105 Mean: 129 Results/Orders Lab Results Laboratory Tests Test 04/27/19 20:18 Range/Units Urine Color YELLOW Urine Clarity CLEAR Urine pH 6 5-9 Urine Specific [place] 1.015 L 1.016-1.022 Urine Protein 3+ H NEGATIVE Urine Glucose (UA) NEGATIVE NEGATIVE Urine Ketones 1+ H NEGATIVE Urine Nitrite NEGATIVE NEGATIVE Urine Bilirubin NEGATIVE NEGATIVE Urine Urobilinogen NORMAL NORMAL MG/DL Urine Leukocyte Esterase NEGATIVE NEGATIVE Urine RBC (Auto) 5+ H NEGATIVE Urine RBC 25-50 H /HPF Urine WBC NONE /HPF Urine Squamous Epithelial Cells 5-10 /HPF Urine Crystals NONE /LPF Urine Bacteria TRACE /HPF Urine Casts NONE /LPF Urine Mucus NEGATIVE /LPF Urine Culture Indicated NO My Orders Orders - JI RHODES Ondansetron Oral Dissolve Tab (Zofran (04/27/19 19:45) Ketorolac Injection (Toradol Injection) (10/30/19 21:00) Ct Abd/Pelvis Wo(Kidney Stone) (04/27/19 20:47) Ketorolac Injection (Toradol Injection) (04/27/19 21:00) Medications Given in ED Current Medications Medications Dose Ordered Sig/Francisco Route Start Time Stop Time Status Last Admin Dose Admin Ketorolac Tromethamine 60 mg ONCE ONCE IM 04/27/19 21:00 04/27/19 21:01 DC 04/27/19 20:57 60 MG Ondansetron HCl 8 mg ONCE ONCE PO 04/27/19 19:45 04/27/19 19:46 DC 04/27/19 19:50 8 MG Vital Signs/I&O 04/27/19 19:20 Temp 36.4 Pulse 82 Resp 19 B/P (MAP) 177/105 (129) Pulse Ox 96 O2 Delivery Room Air Capillary Refill : Less Than 3 Seconds Blood Pressure Mean: 129 POS Progress Note : Time: 20:48 Progress Note Patient's having some mild right groin pain with blood in the urine and no obvious infection. We will put her on Macrobid. We offered to do a CT of her abdomen pelvis without contrast rule out kidney stone and she accepted this. Toradol for her body aches. Diagnostic Imaging Diagonstic Imaging: CT Plain Films/CT/US/NM/MRI: abdomen, pelvis Comments Unremarkable abdominal viscera. No evidence of a renal or ureteral stone. No dilatation, stranding or evidence of inflammation of the renal ureteral system. Decompressed bladder. Unremarkable abdominal fat and omentum. Abdominal wall and osseous structures do not demonstrate any acute changes. Visualized lung bases unremarkable. Small hemangioma noted in the liver of unknown consequence. Reviewed: Reviewed by Me Departure Impression Primary Impression: UTI (urinary tract infection) Qualified Codes: N30.01 - Acute cystitis with hematuria Additional Impressions: Hematuria Qualified Codes: R31.29 - Other microscopic hematuria URI with cough and congestion Insomnia Qualified Codes: G47.00 - Insomnia, unspecified Disposition: HOME, SELF-CARE Condition: Stable Departure-Patient Inst. Decision time for Depature: 21:19 Referrals: FREDDIE MARTIN MD (PCP/Family) Primary Care Physician Patient Instructions: Urinary Tract Infection, Adult (DC), Tips for Getting Better Sleep Add. Discharge Instructions: Drink plenty of fluids to flush her kidneys out. supervisor prep the Macrobid take one capsule twice daily for the next week. For your insomnia you can use Tylenol PM and/or melatonin taken about 30 minutes prior to your desired time to sleep. Tylenol and ibuprofen as necessary for body aches, fever and misery. For your nasal congestion and cough you can use decongestants such as chlorpheniramine, phenylephrine, Sudafed etc. Vapor rubs and humidifiers can be helpful. If you experience any further nausea you may take one tablet of Zofran every 6 hours under the tongue as necessary. All discharge instructions reviewed with patient and/or family. Voiced understanding. Scripts Ondansetron (Ondansetron Odt) 4 Mg Tab.rapdis 4 MG PO Q6H PRN for NAUSEA/VOMITING, #8 TAB 0 Refills Prov: JI RHODES 04/27/19 Nitrofurantoin Monohyd/M-Cryst (Macrobid 100 mg Capsule) 100 Mg Capsule 1 TAB PO BID for 7 Days, #14 CAP 0 Refills Prov: JI RHODES 04/27/19 JI RHODES Apr 27, 2019 19:49 POS
[2019-04-27 20:29] LABS: BILIRUBIN,URINE NEGATIVE (NEGATIVE); CLARITY,URINE CLEAR; COLOR,URINE YELLOW; GLUCOSE, URINE (UA) NEGATIVE (NEGATIVE); KETONES,URINE 1+ (NEGATIVE); LEUKOCYTE ESTERASE ,URINE NEGATIVE (NEGATIVE); NITRITE,URINE NEGATIVE (NEGATIVE); PH,URINE 6 (5-9); PROTEIN,URINE 3+ (NEGATIVE)
[2019-04-27 20:39] LABS: BACTERIA,URINE TRACE /HPF; RBC,URINE 25-50 /HPF
[2019-04-27] MEDS ORDERED: KETOROLAC 30 MG/ML VIAL IVP ONE (21:00)
[2019-04-27] MEDS ORDERED: KETOROLAC 60 MG/2 ML VIAL IM ONE (21:00)
[2019-04-27] MEDS ORDERED: ONDA4TAB11 PO (21:21)
[2019-04-27] MEDS ORDERED: NITR-65 PO (21:21)
--- NOTE | 2019-04-27 21:22 | Diagnostic Imaging Report ---
PROCEDURE: CT urinary tract, rule out kidney stone. TECHNIQUE: Multiple contiguous axial images were obtained through the abdomen and pelvis without the use of intravenous contrast. Auto Exposure Controls were utilized during the CT exam to meet ALARA standards for radiation dose reduction. INDICATION: Painful urination. Abdominal pain overall. FINDINGS: Lung bases are clear. There is hepatomegaly with hepatic steatosis. There is a hypodense lesion measuring 7 mm along the inferior aspect of the right lobe of the liver. Gallbladder and bile ducts are nondilated. There is no pericholecystic fluid. Pancreas appears normal. The spleen is normal. The adrenal glands are normal. The kidneys show no evidence of obstruction or calculi. The renal outlines are smooth. There is no perinephric fluid. The ureters are not dilated. No ureteral calculi. The bladder is empty. The uterus and ovaries are not enlarged. The appendix is normal. The colon shows normal stool and gas pattern. No evidence of diverticulitis. No colitis. The stomach and small bowel are not distended. The lung bases are clear. There is a small hiatal hernia noted. No intra-abdominal adenopathy of pathologic size. No free air or free fluid. No bony lesions demonstrated. IMPRESSION: 1. No acute intra-abdominal finding. Kidneys, ureters and bladder appear normal. 2. A small 7 mm hypodense lesion inferiorly in the liver. This is nonspecific in nature with lack of IV contrast for evaluation. Would recommend nonemergent follow-up evaluation. 3. Atherosclerotic change of the aorta without aneurysm. Dictated by: Dictated on workstation # [id number]
[2019-04-27 21:45] VITALS: BP 185/99
== END 2019-04-27 21:49 | disposition home or self-care (01) ==
LOC: EDUNIT# 19:10 → ER 19:11
DX: N39.0 Urinary tract infection, site not specified (principal); J06.9 Acute upper respiratory infection, unspecified; I10 Essential (primary) hypertension; E03.9 Hypothyroidism, unspecified; F41.9 Anxiety disorder, unspecified; F32.9 Major depressive disorder, single episode, unspecified; G47.00 Insomnia, unspecified; F17.210 Nicotine dependence, cigarettes, uncomplicated; Z88.0 Allergy status to penicillin; Z88.2 Allergy status to sulfonamides; Z88.1 Allergy status to other antibiotic agents
CPT/HCPCS: 74176; 81000; 96372

== ENCOUNTER 2022-02-09 21:15 | Emergency (ER) | payer SELFPAY ==
[~2022-02-09 21:15] MED LIST changes: +CYCL10TA25 PO; -CYCL10TA9 PO; +ONDA4TAB11 PO
[2022-02-09] MEDS ORDERED: NS IV 1000 ML 1,000 ML IV SCH (21:30)
--- NOTE | 2022-02-09 21:41 | ED Cough/URI ---
General Chief Complaint: Respiratory Problems Stated Complaint: SOA Source: patient Exam Limitations: no limitations History of Present Illness Date Seen by Provider: Feb 09, 2022 Time Seen by Provider: 21:21 Initial Comments Patient to the ER by EMS from home with chief complaint that she has had a loose, mildly productive cough, feelings of dysuria for the past 2 days and malaise. She does not have any body aches fevers chills nausea vomiting or diarrhea. She feels like she is been confused, hallucinating the past couple days. She just retired from working as a [employer] 2 days ago. She smokes cigarettes quarter pack a day but denies any drinking or recreational drug use. No known sick contacts outside of work. She has been off her Synthroid for the past couple weeks because she needs to make a follow-up appointment with Ashok her primary care provider. Kiana she describes a couple episodes where she felt like her throat was closing up on her but lasted only a few seconds and then went away. She has a history of anxiety with panic attacks. She used to take a Valium for her panic attacks. He does not take anything for them now. She thinks it may be some of her throat closing up might of been from a panic attack. Allergies and Home Medications Allergies Coded Allergies: Penicillins (Verified Allergy, Mild, 04/27/19) Sulfa (Sulfonamide Antibiotics) (Verified Allergy, Mild, 04/27/19) erythromycin base (Verified Adverse Reaction, Mild, NAUSEA, 04/27/19) Patient Home Medication List Home Medication List Reviewed: Yes Amlodipine Besylate (Amlodipine Besylate) 5 Mg Tablet, 5 MG PO DAILY Prescribed by: JI RHODES on 02/10/22 0153 Cyclobenzaprine HCl (Cyclobenzaprine HCl) 10 Mg Tablet, 10 MG PO Q8H Prescribed by: MARYURI MCELROY on 12/27/18 0623 Hydrochlorothiazide (Hctz) 12.5 Mg Cap, (Reported) Entered as Reported by: DOROTHY TURNER on 03/23/09 1311 Levothyroxine Sodium (Levothyroxine 88 Mcg Tab) 88 Mcg Tablet, (Reported) Entered as Reported by: DOROTHY TURNER on 03/23/09 1308 Lisinopril (Zestril) 20 Mg Tablet, (Reported) Entered as Reported by: DOROTHY TURNER on 03/23/09 131 Methylprednisolone (Medrol) 4 Mg Tab.ds.pk, 4 MG PO UD Prescribed by: MARYURI MCELROY on 12/27/18622 Nitrofurantoin Monohyd/M-Cryst (Macrobid 100 mg Capsule) 100 Mg Capsule, 100 MG PO BID Prescribed by: MARYURI MCELROY on 12/27/18622 Nitrofurantoin Monohyd/M-Cryst (Macrobid 100 mg Capsule) 100 Mg Capsule, 1 TAB PO BID Prescribed by: JI RHDOES on 04/27/192120 Ondansetron (Ondansetron Odt) 4 Mg Tab.rapdis, 4 MG PO Q6H PRN for NAUSEA/VOMITING Prescribed by: JI RHODES on 04/27/192120 [Black Cohosh] , (Reported) Entered as Reported by: DOROTHY TURNER on 03/23/091309 [Cymbalta] , (Reported) Entered as Reported by: DOROTHY TURNER on 03/23/09 132 [Flax Oil] , (Reported) Entered as Reported by: DOROTHY TURNER on 03/23/091309 Review of Systems Review of Systems Constitutional: see HPI; No chills, No fever; malaise EENTM: No hearing loss, No eye pain Respiratory: cough, short of breath; No wheezing Cardiovascular: No chest pain, No Hx of Intervention, No palpitations Gastrointestinal: No abdominal pain, No constipation, No diarrhea, No nausea, No vomiting Genitourinary: No discharge, No dysuria Musculoskeletal: No back pain, No joint pain All Other Systems Reviewed Negative Unless Noted: Yes Past Dbvstik-Nwpozz-Rxblwe Hx Patient Social History Tobacco Use?: No Use of E-Cig and/or Vaping dev: No Substance use?: No Seasonal Allergies Seasonal Allergies: No Past Medical History Surgeries: No Ear Surgery Respiratory: No Cardiac: Yes Hypertension Neurological: No Reproductive Disorders: No Sexually Transmitted Disease: No Genitourinary: No Gastrointestinal: No Musculoskeletal: No Endocrine: Yes Hypothyroidsim HEENT: No Cancer: No Psychosocial: Yes Anxiety, Depression Integumentary: No Blood Disorders: No Physical Exam Vital Signs - First Documented 02/09/22 21:20 Temp 36.6 Pulse 88 Resp 20 B/P (MAP) 203/115 (144) Pulse Ox 97 O2 Delivery Room Air Capillary Refill : Height: 5'1.00" Weight: 180lbs. oz. 81.553659id; 39.00 BMI Method:Stated General Appearance: WD/WN, no apparent distress Eyes: Bilateral Eye PERRL, Bilateral Eye EOMI, Bilateral Eye Other (Bilateral eyes have a scant amount of mucus effusion at the inner canthus) HEENT: PERRL/EOMI, normal ENT inspection; No TMs normal (Mucous effusion without erythema or injection. No loss of tympanic membrane landmarks); pharynx normal (Mildly dry) Neck: non-tender, full range of motion, supple, normal inspection Respiratory: lungs clear, normal breath sounds, no respiratory distress, no accessory muscle use, other (96% on room air nonlabored breathing. No wheezes or crackles heard.) Cardiovascular: normal peripheral pulses, regular rate, rhythm Gastrointestinal: normal bowel sounds, non tender, soft Extremities: normal range of motion, non-tender Neurologic/Psychiatric: alert, normal mood/affect, oriented x 3 Skin: normal color, warm/dry Progress/Results/Core Measures Suspected Sepsis SIRS Temperature: Pulse: Respiratory Rate: Laboratory Tests 02/09/22 21:40: White Blood Count 9.7 Blood Pressure / Mean: Laboratory Tests 02/09/22 21:40: Creatinine 1.19, Platelet Count 275, Total Bilirubin 0.5 Results/Orders Lab Results Laboratory Tests Test 02/09/22 21:40 02/09/22 22:14 02/09/22 22:55 Range/Units White Blood Count 9.7 4.3-11.0 10^3/uL Red Blood Count 4.29 3.80-5.11 10^6/uL Hemoglobin 13.4 11.5-16.0 g/dL Hematocrit 41 35-52 % Mean Corpuscular Volume 94 80-99 fL Mean Corpuscular Hemoglobin 31 25-34 pg Mean Corpuscular Hemoglobin Concent 33 32-36 g/dL Red Cell Distribution Width 13.6 10.0-14.5 % Platelet Count 275 130-400 10^3/uL Mean Platelet Volume 11.1 9.0-12.2 fL Immature Granulocyte % (Auto) 0 % Neutrophils (%) (Auto) 57 42-75 % Lymphocytes (%) (Auto) 34 12-44 % Monocytes (%) (Auto) 5 0-12 % Eosinophils (%) (Auto) 2 0-10 % Basophils (%) (Auto) 1 0-10 % Neutrophils # (Auto) 5.6 1.8-7.8 10^3/uL Lymphocytes # (Auto) 3.3 1.0-4.0 10^3/uL Monocytes # (Auto) 0.5 0.0-1.0 10^3/uL Eosinophils # (Auto) 0.2 0.0-0.3 10^3/uL Basophils # (Auto) 0.1 0.0-0.1 10^3/uL Immature Granulocyte # (Auto) 0.0 0.0-0.1 10^3/uL Sodium Level 138 135-145 MMOL/L Potassium Level 3.4 L 3.6-5.0 MMOL/L Chloride Level 100 98-107 MMOL/L Carbon Dioxide Level 23 21-32 MMOL/L Anion Gap 15 H 5-14 MMOL/L Blood Urea Nitrogen 13 7-18 MG/DL Creatinine 1.19 0.60-1.30 MG/DL Estimat Glomerular Filtration Rate 51 BUN/Creatinine Ratio 11 Glucose Level 96 70-105 MG/DL Calcium Level 9.8 8.5-10.1 MG/DL Corrected Calcium 8.5-10.1 MG/DL Total Bilirubin 0.5 0.1-1.0 MG/DL Aspartate Amino Transf (AST/SGOT) 69 H 5-34 U/L Alanine Aminotransferase (ALT/SGPT) 25 0-55 U/L Alkaline Phosphatase 80 40-136 U/L C-Reactive Protein High Sensitivity 0.60 H 0.00-0.50 MG/DL Total Protein 7.7 6.4-8.2 GM/DL Albumin 4.6 H 3.2-4.5 GM/DL Serum Alcohol < 10 <10 MG/DL Influenza Type A (RT-PCR) Not Detected Not Detecte Influenza Type B (RT-PCR) Not Detected Not Detecte SARS-CoV-2 RNA (RT-PCR) Not Detected Not Detecte Bedside Blood Gas pH (LAB) 7.456 H 7.310-7.410 Bedside Blood Gas pCO2 (LAB) 38.2 L 41.0-51.0 mmHg Bedside Blood Gas pO2 (LAB) 78 L 80-105 mmHg Bedside Blood Gas HCO3 (LAB) 26.9 23.0-28.0 mmol/L POC Blood Gas Total CO2 Calc 28 24-29 mmol/L Bedside Bl Gas O2 Saturation (Calc) 96 95-98 % Bedside Arterial Blood Base Excess 3 -2-3 mmol/L Urine Color YELLOW Urine Clarity CLEAR Urine pH 6.0 5-9 Urine Specific [place] 1.020 1.016-1.022 Urine Protein TRACE H NEGATIVE Urine Glucose (UA) NEGATIVE NEGATIVE Urine Ketones TRACE H NEGATIVE Urine Nitrite NEGATIVE NEGATIVE Urine Bilirubin NEGATIVE NEGATIVE Urine Urobilinogen 0.2 < = 1.0 MG/DL Urine Leukocyte Esterase NEGATIVE NEGATIVE Urine RBC (Auto) 2+ H NEGATIVE Urine RBC 10-25 H /HPF Urine WBC 0-2 /HPF Urine Squamous Epithelial Cells 5-10 /HPF Urine Crystals NONE /LPF Urine Bacteria TRACE /HPF Urine Casts NONE /LPF Urine Mucus NEGATIVE /LPF Urine Culture Indicated NO Urine Opiates Screen NEGATIVE NEGATIVE Urine Oxycodone Screen NEGATIVE NEGATIVE Urine Methadone Screen NEGATIVE NEGATIVE Urine Propoxyphene Screen NEGATIVE NEGATIVE Urine Barbiturates Screen NEGATIVE NEGATIVE Ur Tricyclic Antidepressants Screen NEGATIVE NEGATIVE Urine Phencyclidine Screen NEGATIVE NEGATIVE Urine Amphetamines Screen NEGATIVE NEGATIVE Urine Methamphetamines Screen NEGATIVE NEGATIVE Urine Benzodiazepines Screen NEGATIVE NEGATIVE Urine Cocaine Screen NEGATIVE NEGATIVE Urine Cannabinoids Screen NEGATIVE NEGATIVE My Orders Orders - JI RHODES Ed Iv/Invasive Line Start (02/09/22 21:30) Ns Iv 1000 Ml (Sodium Chloride 0.9%) (02/09/22 21:30) Cbc With Automated Diff (02/09/22 21:30) Comprehensive Metabolic Panel (02/09/22 21:30) Hs C Reactive Protein (02/09/22 21:30) Ua Culture If Indicated (02/09/22 21:30) Drug Screen Stat (Urine) (02/09/22 21:30) Alcohol (02/09/22 21:30) Chest 1 View, Ap/Pa Only (02/09/22 21:30) Covid 19 Inhouse Test (02/09/22 21:30) Influenza A And B By Pcr (02/09/22 21:30) Labetalol Injection (Normodyne Injection (02/10/22 00:00) Ct Head Wo (02/10/22 00:01) Medications Given in ED Current Medications Medications Dose Ordered Sig/Francisco Route Start Time Stop Time Status Last Admin Dose Admin Labetalol HCl 20 mg ONCE ONCE IV 02/10/22 00:00 02/10/22 00:01 DC 02/10/22 00:07 20 MG Vital Signs/I&O 02/09/22 02/09/22 02/10/22 21:20 21:20 02:27 Temp 36.6 36.5 Pulse 88 65 Resp 20 16 B/P (MAP) 203/115 (144) 154/89 Pulse Ox 97 98 O2 Delivery Room Air Room Air Room Air 02/09/22 23:59 Intake Total 1000 ml Balance 1000 ml Capillary Refill : Progress Note #1: Time: 21:39 Progress Note Patient may be experiencing some mild delirium but staff who have worked with her in the past states that this is her baseline. We will get a chest x-ray, COVID swab, labs and urinalysis. Her first urine specimen she put toilet paper and so we are not able to collect it. We will also get a alcohol and drug screen. Her vital signs are aseptic. Heart rate in the 80s. She is not having any evidence of anaphylaxis or laryngeal edema. She does sound hoarse and has some mattering of bilateral eyes and mucous effusion of bilateral tympanic membranes consistent with viral upper respiratory tract infection. Progress Note #2: Time: 23:57 Progress Note Patient states she still feels a little bit muddled and forgets things. Her blood pressure improved marginally down to the 180s systolic from 200 but her diastolic is still 115. Perhaps she is having some hypertensive encephalopathy. She says she does not take any blood pressure medicines. She does have some symptoms of an upper respiratory tract infection likely viral with a little bit of a bilateral conjunctivitis and mucoid effusion in bilateral TMs. We recommended a nasal steroid. We are going to give her a dose of labetalol get a CT of her head and if these look okay and her pressure comes down we will start her on a blood pressure medicine at home, amlodipine 5 mg Progress Note #3: Time: 01:51 Progress Note On reexamination the patient's blood pressure is 146/86 and she is feeling much better. She is not having any confusion. She was alert and oriented x4 since she got here but complaining of feeling muddled and forgetting things. We will send her home with amlodipine and follow-up with a primary care doctor. Diagnostic Imaging Diagonstic Imaging: Xray Plain Films/CT/US/NM/MRI: chest Comments [facility] [place] [place] NAME: ALIYA FLETCHER [facility] REC#: [id number] PT STATUS: [facility] ER : 1960 PHYSICIAN: JI RHODES MD ADMIT DATE: 02/09/22/ER Draft Date of Exam:02/09/22 CHEST 1 VIEW, AP/PA ONLY INDICATION: Cough and dyspnea. EXAMINATION: Single AP view of the chest was obtained. COMPARISON: No previous study is available for comparison at this time. FINDINGS: Heart size and pulmonary vasculature are within normal limits, and the lungs are clear, bilaterally. IMPRESSION: Unremarkable chest. Dictated on workstation # [id number] Dict: 02/09/222230 Trans: 02/09/222235 [facility] [id number] Interpreted by: MAURI MCGRATH MD Electronically signed by: Reviewed: Reviewed by Me Diagonstic Imaging: CT Plain Films/CT/US/NM/MRI: head Comments No acute intracranial hemorrhage, mass-effect, midline shift tumors or calvarial fracture. [facility] [place] [place] NAME: ALIYA FLETCHER [facility] REC#: [id number] PT STATUS: [facility] ER : 1960 PHYSICIAN: JI RHODES MD ADMIT DATE: 02/09/22/ER Draft Date of Exam:02/10/22 CT HEAD WO PROCEDURE: CT head without contrast. TECHNIQUE: Multiple contiguous axial images were obtained through the brain without the use of intravenous contrast. Auto Exposure Controls were utilized during the CT exam to meet ALARA standards for radiation dose reduction. INDICATION: Hypertensive encephalopathy. CT HEAD: CT images of the head were obtained. FINDINGS: Ventricles and sulci are within normal limits for size. There is no intracranial hemorrhage identified. Mild low density is seen within the deep white matter of both hemispheres. This is most pronounced posteriorly and on the left with no associated mass effect. There is no abnormal mass effect or shift of midline structures. IMPRESSION: Unremarkable CT of the head. Dictated on workstation # [id number] Dict: 02/10/226 Trans: 02/10/22 0514 GRACIE [id number] Interpreted by: MAURI MCGRATH MD Electronically signed by: Reviewed: Reviewed by Me Departure Impression Primary Impression: Hypertensive encephalopathy Disposition: 01 HOME, SELF-CARE Condition: Stable Departure-Patient Inst. Decision time for Depature: 01:52 Referrals: FREDDIE MARTIN MD (PCP/Family) Primary Care Physician Patient Instructions: High Blood Pressure (DC) Add. Discharge Instructions: Amlodipine 5 mg daily to control blood pressure. Follow-up with your primary care doctor in the next couple weeks to reexamine your blood pressure. All discharge instructions reviewed with patient and/or family. Voiced understanding. Scripts Amlodipine Besylate (Amlodipine Besylate) 5 Mg Tablet 5 MG PO DAILY for 30 Days, #30 TAB 0 Refills Prov: JI RHODES 02/10/22 Copy Copies To 1: FREDDIE MARTIN MD, TITUS J Feb 09, 2022 21:40
[2022-02-09 21:59] LABS: BASOPHILS # (AUTO) 0.1 10^3/uL (0.0-0.1); BASOPHILS % (AUTO) 1 % (0-10); EOSINOPHILS # (AUTO) 0.2 10^3/uL (0.0-0.3); EOSINOPHILS % (AUTO) 2 % (0-10); HEMATOCRIT 41 % (35-52); HEMOGLOBIN 13.4 g/dL (11.5-16.0); LYMPHOCYTES # (AUTO) 3.3 10^3/uL (1.0-4.0); LYMPHOCYTES % (AUTO) 34 % (12-44); MEAN CORPUSCULAR HEMOGLOBIN 31 pg (25-34); MEAN CORPUSCULAR HGB CONC 33 g/dL (32-36); MEAN CORPUSCULAR VOLUME 94 fL (80-99); MEAN PLATELET VOLUME 11.1 fL (9.0-12.2); MONOCYTES # (AUTO) 0.5 10^3/uL (0.0-1.0); MONOCYTES % (AUTO) 5 % (0-12); NEUTROPHILS # (AUTO) 5.6 10^3/uL (1.8-7.8); NEUTROPHILS % (AUTO) 57 % (42-75); PLATELET COUNT 275 10^3/uL (130-400); WHITE BLOOD COUNT 9.7 10^3/uL (4.3-11.0)
[2022-02-09 22:09] LABS: ALBUMIN 4.6 GM/DL (3.2-4.5); CHLORIDE 100 MMOL/L (98-107); POTASSIUM 3.4 MMOL/L (3.6-5.0); SODIUM 138 MMOL/L (135-145)
[2022-02-09 22:10] LABS: CALCIUM 9.8 MG/DL (8.5-10.1)
[2022-02-09 22:12] LABS: GLUCOSE 96 MG/DL (70-105); TOTAL PROTEIN 7.7 GM/DL (6.4-8.2)
[2022-02-09 22:13] LABS: BILIRUBIN,TOTAL 0.5 MG/DL (0.1-1.0); CARBON DIOXIDE 23 MMOL/L (21-32)
[2022-02-09 22:15] LABS: ALKALINE PHOSPHATASE 80 U/L (40-136); CREATININE SERUM 1.19 MG/DL (0.60-1.30); GFR ESTIMATED 51
[2022-02-09 22:17] LABS: BUN/CREATININE RATIO 11
[2022-02-09 22:18] LABS: ALANINE AMINOTRANSFERASE 25 U/L (0-55)
--- NOTE | 2022-02-09 22:36 | Diagnostic Imaging Report ---
INDICATION: Cough and dyspnea. EXAMINATION: Single AP view of the chest was obtained. COMPARISON: No previous study is available for comparison at this time. FINDINGS: Heart size and pulmonary vasculature are within normal limits, and the lungs are clear, bilaterally. IMPRESSION: Unremarkable chest. Dictated by: Dictated on workstation # [id number]
[2022-02-09 23:10] LABS: BILIRUBIN,URINE NEGATIVE (NEGATIVE); CLARITY,URINE CLEAR; COLOR,URINE YELLOW; GLUCOSE, URINE (UA) NEGATIVE (NEGATIVE); KETONES,URINE TRACE (NEGATIVE); LEUKOCYTE ESTERASE ,URINE NEGATIVE (NEGATIVE); NITRITE,URINE NEGATIVE (NEGATIVE); PROTEIN,URINE TRACE (NEGATIVE)
[2022-02-09 23:20] LABS: BACTERIA,URINE TRACE /HPF; WBC,URINE 0-2 /HPF
[2022-02-09 23:23] LABS: AMPHETAMINE SCREEN, URINE NEGATIVE (NEGATIVE); BARBITURATE SCREEN URINE NEGATIVE (NEGATIVE); BENZODIAZEPINES SCREEN URINE NEGATIVE (NEGATIVE); CANNABINOID SCREEN, URINE NEGATIVE (NEGATIVE); COCAINE SCREEN URINE NEGATIVE (NEGATIVE); METHADONE STAT NEGATIVE (NEGATIVE); OPIATE SCREEN URINE NEGATIVE (NEGATIVE); OXYCODONE STAT NEGATIVE (NEGATIVE); PROPOXYPHENE STAT NEGATIVE (NEGATIVE); TRICYCLIC ANTIDEPRESSANTS SCRE NEGATIVE (NEGATIVE)
[2022-02-10] MEDS ORDERED: LABETALOL HCL 20 MG/4 ML VIAL IV ONE
[2022-02-10] MEDS ORDERED: AMLO-250 PO (01:53)
[2022-02-10 02:27] VITALS: BP 154/89
--- NOTE | 2022-02-10 05:14 | Diagnostic Imaging Report ---
PROCEDURE: CT head without contrast. TECHNIQUE: Multiple contiguous axial images were obtained through the brain without the use of intravenous contrast. Auto Exposure Controls were utilized during the CT exam to meet ALARA standards for radiation dose reduction. INDICATION: Hypertensive encephalopathy. CT HEAD: CT images of the head were obtained. FINDINGS: Ventricles and sulci are within normal limits for size. There is no intracranial hemorrhage identified. Mild low density is seen within the deep white matter of both hemispheres. This is most pronounced posteriorly and on the left with no associated mass effect. There is no abnormal mass effect or shift of midline structures. IMPRESSION: Unremarkable CT of the head. Dictated by: Dictated on workstation # [id number]
== END 2022-02-10 02:30 | disposition home or self-care (01) ==
LOC: EDUNIT# 21:15 → ER 21:16
DX: I67.4 Hypertensive encephalopathy (principal); F41.0 Panic disorder [episodic paroxysmal anxiety]; F17.210 Nicotine dependence, cigarettes, uncomplicated; Z20.822 Contact with and (suspected) exposure to COVID-19; Z79.899 Other long term (current) drug therapy
CPT/HCPCS: 70450; 71045; 80053; 80306; 81000; 82805; 85025; 86141; 87636; 99285; G0480; 36415; 80320

== ENCOUNTER 2022-02-10 12:48 | Observation (INO) | payer SELFPAY ==
[~2022-02-10] VITALS: Ht 154.9 cm; Wt 105.5 kg
[~2022-02-10 12:48] MED LIST changes: +AMLO-250 PO
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
[2022-02-10 13:13] LABS: BASOPHILS # (AUTO) 0.1 10^3/uL (0.0-0.1); BASOPHILS % (AUTO) 1 % (0-10); EOSINOPHILS # (AUTO) 0.1 10^3/uL (0.0-0.3); EOSINOPHILS % (AUTO) 2 % (0-10); HEMATOCRIT 37 % (35-52); LYMPHOCYTES % (AUTO) 27 % (12-44); MEAN CORPUSCULAR HEMOGLOBIN 32 pg (25-34); MEAN CORPUSCULAR HGB CONC 33 g/dL (32-36); MEAN CORPUSCULAR VOLUME 97 fL (80-99); MONOCYTES # (AUTO) 0.4 10^3/uL (0.0-1.0); MONOCYTES % (AUTO) 5 % (0-12); NEUTROPHILS % (AUTO) 66 % (42-75); PLATELET COUNT 230 10^3/uL (130-400); WHITE BLOOD COUNT 7.6 10^3/uL (4.3-11.0)
[2022-02-10 13:27] LABS: CHLORIDE 102 MMOL/L (98-107); POTASSIUM 3.1 MMOL/L (3.6-5.0); SODIUM 138 MMOL/L (135-145)
[2022-02-10 13:28] LABS: CALCIUM 8.7 MG/DL (8.5-10.1); GLUCOSE 115 MG/DL (70-105)
[2022-02-10 13:30] LABS: CARBON DIOXIDE 22 MMOL/L (21-32)
[2022-02-10 13:32] LABS: CREATININE SERUM 0.96 MG/DL (0.60-1.30); GFR ESTIMATED 66
[2022-02-10 13:33] LABS: BUN/CREATININE RATIO 9
[2022-02-10 13:56] LABS: BILIRUBIN,URINE NEGATIVE (NEGATIVE); CLARITY,URINE CLEAR; COLOR,URINE YELLOW; GLUCOSE, URINE (UA) NEGATIVE (NEGATIVE); KETONES,URINE TRACE (NEGATIVE); LEUKOCYTE ESTERASE ,URINE NEGATIVE (NEGATIVE); NITRITE,URINE NEGATIVE (NEGATIVE); PROTEIN,URINE TRACE (NEGATIVE)
[2022-02-10 14:00] LABS: FREE T4 (FREE THYROXINE) < 0.40 NG/DL (0.70-1.48)
[2022-02-10 14:13] LABS: BACTERIA,URINE TRACE /HPF; SQUAMOUS EPITHELIAL CELL,UR 0-2 /HPF
[2022-02-10 16:00] VITALS: BP 139/94
[2022-02-10 16:33] VITALS: BP 162/89
[2022-02-10] MEDS ORDERED: CATHETER FLUSH 10 ML SYR IVP PRN (16:45)
[2022-02-10] MEDS ORDERED: RT-ALBUTEROL/IPRATROPIUM 3 ML (DUONEB) VIAL INH PRN (17:00)
[2022-02-10] MEDS: NS IV 1000 ML 1,000 ML IV SCH (18:40)
[2022-02-10 18:53] VITALS: BP 122/62
[2022-02-10 20:09] VITALS: BP 123/73
[2022-02-10] MEDS: RT-ALBUTEROL/IPRATROPIUM 3 ML (DUONEB) VIAL INH SCH (21:19)
[2022-02-11 00:47] VITALS: BP 165/84
[2022-02-11] MEDS: IBUPROFEN 800 MG (MOTRIN) TAB PO PRN ×2 (00:52→09:13)
[2022-02-11 03:54] VITALS: BP 147/67
[2022-02-11] MEDS: LEVOTHYROXINE 112 MCG (LEVOTHROID) TAB PO SCH (06:10)
[2022-02-11] MEDS: NS IV 1000 ML 1,000 ML IV SCH ×2 (06:10→19:46)
[2022-02-11] MEDS: RT-ALBUTEROL/IPRATROPIUM 3 ML (DUONEB) VIAL INH SCH ×2 (07:05→19:07)
[2022-02-11 07:40] VITALS: BP 133/62
[2022-02-11] MEDS: HydroCHLOROthiazide CAP/TABLET 12.5 MG TAB PO SCH (09:14)
[2022-02-11] MEDS: lisINopril 20 MG (PRINIVIL) TABLET PO SCH (09:14)
[2022-02-11 09:51] LABS: CALCIUM 8.3 MG/DL (8.5-10.1); CREATININE SERUM 0.89 MG/DL (0.60-1.30); POTASSIUM 3.3 MMOL/L (3.6-5.0)
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
[2022-02-11 12:20] VITALS: BP 156/84
[2022-02-11] MEDS ORDERED: LORazepam 0.5 MG (ATIVAN) TABLET PO STA (13:55)
--- NOTE | 2022-02-11 14:02 | Physical Therapy Evaluation ---
PT Evaluation-General Medical Diagnosis Admission Date Feb 10, 2022 at 14:43 Medical Diagnosis: hypothyroidism/AMS Onset Date: Feb 10, 2022 Therapy Diagnosis Therapy Diagnosis: debility/weakness Height/Weight Height (Feet): 5 Height (Inches): 1.00 Weight (Pounds): 180 Precautions Precautions/Isolations: Fall Prevention, Standard Precautions Referral Physician: Bola Reason for Referral: Evaluation/Treatment Medical History Pertinent Medical History: HTN, Hypothroidism, Smoking Current History ER secondary to syncopal episode Reviewed History: Yes Social History Home: Apartment Current Living Status: Alone Prior Prior Level of Function SCALE: Activities may be completed with or without assistive devices. 2-Nrrjtuowhh-qfejhtt completes the activity by him/herself with no assistance from a helper. 5-Set-up or Clean-up Assistance-helper sets up or cleans up; patient completes activity. [place] assists only prior to or following the activity. 4-Supervision or Touching Assistance-helper provides verbal cues and/or touching/steadying and/or contact guard assistance as patient completes activity. Assistance may be provided throughout the activity or intermittently. 3-Partial/Moderate Assistance-helper does LESS THAN HALF the effort. [place] lifts, holds or supports trunk or limbs, but provides less than half the effort. 2-Substantial/Maximal Assistance-helper does MORE THAN HALF the effort. [place] lifts or holds trunk or limbs and provides more than half the effort. 7-Nzcxshzln-hitioa does ALL the effort. Patient does none of the effort to complete the activity. Or, the assistance of 2 or more helpers is required for the patient to complete the activity. If activity was not attempted, code reason: 7-Patient Refused. 9-Not Applicable-not attempted and the patient did not perform the activity befo re the current illness, exacerbation or injury. 10-Not Attempted due to Environmental Limitations-(lack of equipment, weather re straints, etc.). 88-Not Attempted due to Medical Conditions or Safety Concerns. Bed Mobility: 6 Transfers (B,C,W/C): 6 Gait: 6 Stairs: 6 Indoor Mobility (Ambulation): Independent Stairs: Independent Prior Devices Use: None PT Evaluation-Current Subjective Patient reports she is feeling much better and agrees to PT. Objective Patient Orientation: Normal For Age ROM/Strength ROM Lower Extremities bilateral LE WFL Strength Lower Extremities 4/5 grossly bilateral LE all planes Integumentary/Posture Integumentary refer to nursing notes Bowel Incontinence: No Bladder Incontinence: No Posture WFL Neuromuscular (Tone, Coordination, Reflexes) grossly intact Sensory Vision: Functional Hearing: Functional Transfers Lying to Sitting/Side of Bed(Q: 6 Sit to Stand (QC): 6 Chair/Flv-pi-Gktue Xfer(QC): 6 Gait Does the Patient Walk?: Yes Mode of Locomotion: Walk Anticipated Mode of Locomotion: Walk Walk 10 feet (QC): 6 Walk 50 ft with 2 Turns(QC): 6 Walk 150 ft (QC): 6 Distance: 300' Gait Assistive Device: None Comments/Gait Description safe and functional with no deviation Balance Sitting Static: Normal Sitting Dynamic: Normal Standing Static: Good Standing Dynamic: Good Assessment/Needs 62 y.o. female, is currently at [facility] with all gross motor skills safely and does not require skilled PT intervention. Rehab Potential: Fair Post Rehab Potential-Barriers: compliance PT Plan Treatment/Plan Treatment Plan: Discontinue PT, goals met Treatment Duration: Feb 11, 2022 Frequency: 1 time per week Estimated Hrs Per Day: .25 hour per day Patient and/or Family Agrees t: Yes Time/GCodes Time In: 1310 Time Out: 1325 Total Billed Treatment Time: 15 Total Billed Treatment 1 visit EVMod 15 min MARGARITA GOODMAN PT Feb 11, 2022 14:02
[2022-02-11 15:40] VITALS: BP 139/76
--- NOTE | 2022-02-11 15:51 | Diagnostic Imaging Report ---
INDICATION: Confusion and memory loss and hypertension. TECHNIQUE: MRI brain obtained without IV contrast. COMPARISON: There is no prior brain MRI for comparison. FINDINGS: Diffusion-weighted images demonstrate no diffusion signal abnormalities. There is no acute ischemic change. There were no extra-axial fluid collections. No intracranial hemorrhage. No intracranial mass or mass effect. No midline shift. The ventricles are normal in size and position. There are moderate patchy chronic ischemic changes throughout the deep and subcortical white matter of both hemispheres. Visualized portions of the sinuses and orbits are unremarkable. IMPRESSION: No acute stroke, hemorrhage, or mass effect. Moderate chronic ischemic changes in the deep and subcortical white matter of both hemispheres. There is no acute-appearing intracranial finding. Dictated by: Dictated on workstation # [id number]
[2022-02-11 19:14] VITALS: BP 141/89
[2022-02-11] MEDS ORDERED: KCL 20 MEQ TAB (K-DUR) PO ONE (20:30)
[2022-02-11] MEDS: ENOXAPARIN 40 MG/0.4 ML (LOVENOX) SYR SQ SCH ×3 (22:09→22:11)
[2022-02-12 00:51] VITALS: BP 170/74
[2022-02-12 03:25] VITALS: BP 160/61
[2022-02-12] MEDS: LEVOTHYROXINE 112 MCG (LEVOTHROID) TAB PO SCH (05:50)
[2022-02-12 05:54] LABS: HEMATOCRIT 38 % (35-52); HEMOGLOBIN 12.6 g/dL (11.5-16.0); MEAN CORPUSCULAR HEMOGLOBIN 32 pg (25-34); MEAN CORPUSCULAR HGB CONC 33 g/dL (32-36); MEAN CORPUSCULAR VOLUME 95 fL (80-99); MEAN PLATELET VOLUME 11.8 fL (9.0-12.2); PLATELET COUNT 237 10^3/uL (130-400); WHITE BLOOD COUNT 10.8 10^3/uL (4.3-11.0)
[2022-02-12 06:08] LABS: POTASSIUM 3.3 MMOL/L (3.6-5.0)
[2022-02-12 06:09] LABS: CALCIUM 8.3 MG/DL (8.5-10.1)
[2022-02-12 06:13] LABS: CREATININE SERUM 0.94 MG/DL (0.60-1.30)
[2022-02-12] MEDS ORDERED: LISI20TA26 PO (06:47)
[2022-02-12] MEDS ORDERED: HYDR25TA4 PO (06:47)
[2022-02-12] MEDS ORDERED: LEVO112T55 PO (06:47)
[2022-02-12] MEDS ORDERED: KCL 20 MEQ TAB (K-DUR) PO NR (07:00)
[2022-02-12] MEDS: RT-ALBUTEROL/IPRATROPIUM 3 ML (DUONEB) VIAL INH SCH (07:27)
[2022-02-12 08:10] VITALS: BP 138/73
[2022-02-12] MEDS: HydroCHLOROthiazide CAP/TABLET 12.5 MG TAB PO SCH (09:05)
[2022-02-12] MEDS: lisINopril 20 MG (PRINIVIL) TABLET PO SCH (09:05)
[2022-02-12] MEDS: ENOXAPARIN 40 MG/0.4 ML (LOVENOX) SYR SQ SCH (09:05)
[2022-02-12] MEDS: NS IV 1000 ML 1,000 ML IV SCH (09:05)
--- NOTE | 2022-02-12 09:59 | Discharge Summary ---
Discharge Summary Hospital Course Problems/Diagnosis: (1) Hypertensive encephalopathy Status: Resolved Resolution Date/Time: 02/11/22 @ 12:24 Assessment & Plan: Suspected in first ER visit, BP improved with treatment, but persisted with confusion that is now improving. BP this admission mildly elevated. She has a diagnosis of HTN in her outpatient clinic chart, but has not been on medication. Given persistent symptoms, obtained MRI which showed chronic ischemic changes in deep and subcortical white matter of both hemispheres with no acute findings. She was mentating well and discharged with lisinopril and HCTZ prescriptions. (2) Hypothyroidism Status: Acute Assessment & Plan: Uncontrolled wtih very high TSH, resume home levothyroxine, may be part of her confusion. Qualifiers: Qualified Codes: E03.9 - Hypothyroidism, unspecified (3) Altered mental status Status: Resolved Resolution Date/Time: 02/11/22 @ 12:25 Qualifiers: Qualified Codes: R41.0 - Disorientation, unspecified (4) Hematuria Status: Chronic Assessment & Plan: Discussed with patient further work-up likely indicated, she does not recall having work-up in past, recommend considering CT abd/pelvis to eval for renal disease, if negative may need cystoscopy. Qualifiers: Qualified Codes: R31.29 - Other microscopic hematuria Hospital Course Date of Admission: Feb 10, 2022 at 14:43 Admission Diagnosis : Family Physician/Provider: Freddie Lopez MD Date of Discharge: 02/12/22 Discharge Diagnosis: See problem list Hospital Course: See problem list Labs and Pending Lab Test: Laboratory Tests 02/12/22 05:29: White Blood Count 10.8, Red Blood Count 3.99, Hemoglobin 12.6, Hematocrit 38, Mean Corpuscular Volume 95, Mean Corpuscular Hemoglobin 32, Mean Corpuscular Hemoglobin Concent 33, Red Cell Distribution Width 13.5, Platelet Count 237, Mean Platelet Volume 11.8, Sodium Level 136, Potassium Level 3.3L, Chloride Level 102, Carbon Dioxide Level 23, Anion Gap 11, Blood Urea Nitrogen 10, Creatinine 0.94, Estimat Glomerular Filtration Rate 68, BUN/Creatinine Ratio 11, Glucose Level 104, Calcium Level 8.3L Home Meds Active Levothyroxine Sodium 112 Mcg Tablet 112 Mcg PO DAILY@0630 Hydrochlorothiazide 25 Mg Tablet 25 Mg PO DAILY PRN Lisinopril 20 Mg Tablet 20 Mg PO DAILY@0900 Assessment/Pt DC Instructions Follow up with Dr. Lopez within a week of discharge. Discharge Diet: Low Sodium Diet Activity as Tolerated: Yes Discharge Physical Examination Allergies: Coded Allergies: Penicillins (Verified Allergy, Mild, 04/27/19) Sulfa (Sulfonamide Antibiotics) (Verified Allergy, Mild, 04/27/19) erythromycin base (Verified Adverse Reaction, Mild, NAUSEA, 04/27/19) General Appearance: No Apparent Distress, WD/WN HEENT: Pharynx Normal Respiratory: Lungs Clear, Normal Breath Sounds Cardiovascular: Regular Rate, Rhythm, No Murmur Gastrointestinal: Normal Bowel Sounds, Non Tender, Soft Extremity: No Pedal Edema Skin: Normal Color, Warm/Dry Neurologic/Psychiatric: Alert, Normal Mood/Affect Copy Copies To 1: RFEDDIE LOPEZ MDOCHJOSE J MD Feb 12, 2022 09:59
[2022-02-12 12:00] VITALS: BP 138/73
== END 2022-02-12 12:55 | disposition home or self-care (01) ==
LOC: EDUNIT# 12:48 → ER 12:49 → 4TH 14:43
PROVIDERS: ADMIT Family Medicine; ATTEND Family Medicine
DX: I67.4 Hypertensive encephalopathy (principal); E03.9 Hypothyroidism, unspecified; R41.9 Unspecified symptoms and signs involving cognitive functions and awareness; R31.29 Other microscopic hematuria; Z79.899 Other long term (current) drug therapy; Z87.891 Personal history of nicotine dependence
CPT/HCPCS: 70551; 80048 ×3; 81000; 84439; 84443; 85025; 85027; 94640 ×2; 94760 ×2; 96361 ×2; 96372 ×2; 97162; 99284; G0378; 36415